=== PATIENT | male | born 1950 | race Caucasian/White ===

== ENCOUNTER 2016-05-02 01:26 | Inpatient (IN) | payer MEDICARE, OTHER ==
[~2016-05-02] VITALS: Ht 185.4 cm; Wt 119.8 kg
--- NOTE | ~2016-05-02 | HP ---
PATIENT'S NAME: JAYE LOVE [facility] AGE: 65 Y [address] ROOM: [id number] [place], [place] [address] LOCATION: GPCU ADMIT DATE: 05/02/2016 History & Physical DISCHARGE DATE: FAMILY PHYSICIAN: PHYSICIAN, UNKNOWN ATTENDING PHYSICIAN: JACOB DE LEON DATE OF SERVICE: CHIEF COMPLAINT: Epigastric and right upper quadrant abdominal pain since 2-3 days ago associated with nausea, nonbloody vomiting, dark color urine, and pale stool. HISTORY OF PRESENT ILLNESS: This is a 65-year-old male who says that for the last 2-3 days he has been having this chills and started having this abdominal pain in the epigastric and in the right upper quadrant area sometimes worse with a food intake and sometimes it is not. He says that this pain is also associated with nausea and nonbloody vomiting. He vomited a few episodes the last few days, but he did not see any blood. Also, there was no coffee-ground emesis either. Because of the abdominal pain that is getting worse, therefore, the patient went to [facility] in [place] for evaluation. Over there, the patient had a blood work performed and the patient was found to have normal CBC and the chemistry was remarkable for a CKD stage 3, creatinine 1.5, GFR 45, which is his baseline, and the elevation of liver enzymes, which is new onset, total bilirubin 6.0, AST 461, ALT 803, alkaline phosphatase 240, total protein 6.9, albumin 3.3, globulin 3.6, lipase 71; and because of this, the patient was transferred here for higher level of care. No imaging test was performed over there. I instructed over there to give the patient one dose of IV Levaquin and IV Flagyl given that the patient has allergy to penicillin. This is a coverage for possible cholangitis. The patient was later sent over here for higher level of care. The patient's vital signs are well-maintained within normal limits at all times. REVIEW OF SYSTEMS: As mentioned in the history of present illness. All other systems reviewed and negative except those mentioned in the history of present illness. PAST MEDICAL HISTORY: 1. Hypertension. 2. History of coronary artery disease, status post drug-eluting stent x3 many years ago. 3. Benign prostatic hypertrophy. 4. Obstructive sleep apnea, on home CPAP. He uses 13 cm water pressure every night. 5. History of multiple left kidney stones, status post multiple urological PATIENT'S NAME: JAYE LOVE [facility] AGE: 65 Y [address] ROOM: [id number] [place], [place] [address] [facility] AD[facility] DATE: 05/02/2016 History & Physical DISCHARGE DATE: FAMILY PHYSICIAN: PHYSICIAN, UNKNOWN ATTENDING PHYSICIAN: JACOB DE LEON procedure including stone removal and stent placement. 6. CKD stage 3. 7. Hypertension. 8. Hyperlipidemia. ALLERGIES: PENICILLIN, AMPICILLIN, AND AMOXICILLIN, WHICH GIVES HIM DIARRHEA, AND KIWI, WHICH CAUSES ANAPHYLAXIS. HOME MEDICATIONS: Currently, it is being reconciled. SOCIAL HISTORY: The patient was a former cigarette smoker and he quit in 1971. He used to smoke about 1 pack per day for 8 years. He denies any alcohol or any illegal drug use. FAMILY HISTORY: Father from myocardial infarction at age 53 and mother from complications from alcoholism. PAST SURGICAL HISTORY: 1. Status post cholecystectomy. 2. Status post left kidney stone removal in the past. 3. Status post left total knee arthroplasty. 4. Status post left inguinal hernia repair. 5. Status post umbilical hernia repair. 6. Status post skin cancer removal x3 including melanoma. 7. Status post drug-eluting stent x3 many years ago in 2001, according to the patient. PHYSICAL EXAMINATION: VITAL SIGNS: At the time of my dictation, temperature 98.4, heart rate 90, respirations 16, blood pressure 120/71, and saturation 94% on room air. Pain 3/10 to 4/10 in the right upper quadrant and also in the epigastric area. GENERAL APPEARANCE: Alert and oriented x3, in no acute distress, a very pleasant male. HEENT: Pupils equally round and reactive to light. Extraocular muscles intact. Anicteric sclerae present bilaterally. Nasal turbinates are normal bilaterally. Moist oral mucosa. No oral thrush. NECK: No JVD. No cervical lymphadenopathy. No neck stiffness. CARDIOVASCULAR: Regular rate and rhythm. Normal S1, S2. No murmur, no rubs, no gallops. RESPIRATORY: Clear. ABDOMEN: Soft, no abdominal rigidity, tenderness to palpation in the PATIENT'S NAME: JAYE LOVE [facility] AGE: 65 Y [address] ROOM: [id number] [place], [place] [address] LOCATION: GPCU ADMIT DATE: 05/02/2016 History & Physical DISCHARGE DATE: FAMILY PHYSICIAN: PHYSICIAN, UNKNOWN ATTENDING PHYSICIAN: JACOB DE LEON epigastric and in the right upper quadrant about 4/10 intensity, no rebound tenderness, bowel sounds are present, no hepatosplenomegaly. EXTREMITIES: No edema in upper or lower extremities. NEUROLOGIC: Grossly nonfocal. SKIN: No ulcer, no rash, no cyanosis. MUSCULOSKELETAL: No joint pain. No muscle pain. NEUROLOGICAL: Grossly nonfocal. LABORATORY DATA: Lactic acid 1.6. White blood cell 10.2, hemoglobin 12.9, hematocrit 38.9, MCV 93.7, and platelet 220. Glucose 136, BUN 24, creatinine 1.6, sodium 143, potassium 4.1, chloride 110, CO2 23, calcium is 8.8, total protein 6.5, albumin 3.2, AST 399, ALT 720, alkaline phosphatase 250, total bilirubin 5.7, direct bilirubin 4.6, phosphorus 2.1, GFR 43, magnesium 1.7, and anion gap 14.1. INR 1.1. Urinalysis 25 leukocytes, 20-50 white blood cells, few bacteria, positive nitrite. Procalcitonin 18.59. IMAGING STUDIES: No EKG was performed from the outside facility. ASSESSMENT AND PLAN: 1. Abnormal liver function testing in the setting of right upper quadrant pain and jaundice, status post cholecystectomy: Concern for choledocholithiasis or ascending cholangitis. We will cover him with intravenous Zosyn. His allergy reaction to penicillin was only diarrhea. I will cover him with intravenous Zosyn. GI consult in the morning. First of all, I will get a complete abdominal ultrasound to look into the anatomy of the biliary tract. If necessary and if suspect pancreatic obstruction, then a CT scan of the abdomen and pelvis can be performed to better visualize the pancreas. But for now, I will start with ultrasound of the abdomen. N.p.o. Intravenous fluids for hydration while n.p.o. Further plan depends on clinical course. I will also get blood culture 2 sets and also urinalysis and urine culture as well. 2. Regarding his chronic kidney disease, stage 3: Currently, he is at the baseline. Continue intravenous fluids while he is n.p.o. 3. History of obstructive sleep apnea: The patient's will bring the CPAP from home and his setting is pressure set at 13 every night. 4. History of coronary artery disease, status post drug-eluting stent x3 in the past: Currently, no chest pain. Continue home medication. Not in acute coronary syndrome. If chest pain occurs, we will workup for chest pain etiology. 5. Hypertension: Currently, the medication is being reconciled. We will address once the list is ready. 6. Deep vein thrombosis prophylaxis: He will be on compression devices in anticipation for any gastrointestinal procedure. PATIENT'S NAME: JAYE LOVE [facility] AGE: 65 Y [address] ROOM: [place] [address] [facility] ADMIT DATE: 05/02/2016 History & Physical DISCHARGE DATE: FAMILY PHYSICIAN: PHYSICIAN, UNKNOWN ATTENDING PHYSICIAN: JACOB DE LEON Time spent on the day of admission 40 minutes including chart review, interviewing the patient, examining the patient, addressing all the questions and concerns the patient had, and going over the plan of care with the patient and the nurses. JACOB DE LEON MD CC/leeannal /[id number] D: T: HISTORY & PHYSICAL
--- NOTE | ~2016-05-02 | DS ---
PATIENT'S NAME: JAYE LOVE [facility] AGE: 65 Y [address] ROOM: [place] [address] LOCATION: [facility] ADMIT DATE: 05/02/2016 Discharge Summary DISCHARGE DATE: 05/05/2016 FAMILY PHYSICIAN: Angela Nunez MD ATTENDING PHYSICIAN: Ever Kern PRIMARY DIAGNOSES: 1. Acute upper gastrointestinal bleeding. 2. Acute blood loss anemia. 3. Severe sepsis for acute cholangitis. 4. Choledocholithiasis status post ERCP. 5. Essential hypertension. 6. Obstructive sleep apnea, uses CPAP. 7. Coronary artery disease status post PCI with stent. 8. Nephrolithiasis. 9. Chronic kidney disease, stage III. 10. Dyslipidemia. OPERATIONS/PROCEDURES: 1. Abdominal ultrasound was performed 05/02/2016 demonstrating dilatation of the common bile duct up to 1.4 cm, a left renal stone 4-5 mm without hydronephrosis and a surgically absent gallbladder. 2. MRI scan of the abdomen was performed on 05/04/2016 demonstrating mild dilatation of common bile duct with a filling defect consistent with a common bile duct stone in the distal common bile duct. 3. Interventional Radiology angiography and attempted embolization was performed 05/05/2016 unsuccessfully. HISTORY OF ILLNESS/REASON FOR ADMISSION: Please refer to the H and P dictated 04/22/2016. HOSPITAL COURSE: The patient was admitted to hospital as noted above with a presumptive diagnosis of sepsis and acute cholangitis. He was treated with broad-spectrum antibiotic therapy including Zosyn, Flagyl, and levofloxacin. He was hemodynamically stable initially. Ultrasound and MRI scanning were carried out as described above. Gastroenterology had been consulted. It was recommended to proceed with an endoscopy and ERCP. Because of the patient's complicated history, it was felt that the procedure would be high risk. This was because of a known history of a gastric outlet obstruction and previous history of multiple attempts at ERCP with an inability to cannulate the ampulla. On 05/05/2016, the patient was taken for ERCP. The final report of the procedure is pending. Apparently, it was difficult to pass the endoscope PATIENT'S NAME: JAYE LOVE [facility] AGE: 65 Y [address] ROOM: [place] [address] LOCATION: GICU ADMIT DATE: 05/02/2016 Discharge Summary DISCHARGE DATE: 05/05/2016 FAMILY PHYSICIAN: Angela Nunez MD ATTENDING PHYSICIAN: Ever Kern through the gastric outlet obstruction. 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 A sphincterotomy and stent placement were performed, but a significant amount of bleeding ensued. He continued to show evidence of brisk bleeding. He did remain hemodynamically stable at least initially. The patient is Restoration and refused any blood product transfusion. He did receive some IV fluid supplementation. After transfer back to the intensive care unit where he remained intubated (he was intubated prior to the procedure and was kept intubated), his blood pressures dropped. He did receive some additional IV fluid boluses and Levophed was initiated. His blood pressures improved. He did receive some Versed for sedation, but remained arousable and interactive. Dr. Gonzalez, Gastroenterology did discuss the case with Gastroenterology at [facility] in [place], Dr. Guzman. We did make an attempt at Interventional Radiology arteriography and embolization here. However, this was unable to be performed successfully because of vasospasm. It was recommended that the patient be transferred emergently for pancreatic surgical evaluation. The case was discussed with Dr. Guzman as described above by Dr. Gonzalez at our facility. It was requested the patient be transferred emergently there for Gastroenterology evaluation as well as a surgical evaluation and intervention. I did call and discuss the case with Dr. Garcia, hospitalist who agreed to accept the patient in transfer there to the intensive care unit. The patient was hemodynamically stable on Levophed. We did review his status as Restoration and refusal for any transfusion of blood products. The gravity of the case and urgency of transfer and surgical evaluation were also discussed with the patient and his family, who expressed understanding and agreement to the transfer. DISCHARGE/TRANSFER INSTRUCTIONS: DIET: He will remain n.p.o. and on the ventilator. ACTIVITY: Bed rest. MEDICATIONS: 1. Zosyn 3.375 g IV q.8 hours. 2. Normal saline to run at 75 mL continuously. 3. Levophed titrate to keep map greater than 65. 4. Flonase 2 puffs each nostril daily. 5. Melatonin 3 mg p.o. at bedtime. 6. Protonix 20 mg p.o. daily. 7. Pramipexole 0.125 mg p.o. at bedtime. 8. Sertraline 50 mg p.o. q.a.m. PATIENT'S NAME: JAYE LOVE [facility] AGE: 65 Y [address] ROOM: [place] [address] LOCATION: [facility] ADMIT DATE: 05/02/2016 Discharge Summary DISCHARGE DATE: 05/05/2016 FAMILY PHYSICIAN: Angela Nunez MD ATTENDING PHYSICIAN: Ever Kern 9. Flomax 0.4 mg p.o. q.a.m. 10. Acetaminophen 325 mg p.o. q.4 hours p.r.n. pain or fever. 11. Alprazolam 0.125-0.25 p.o. daily p.r.n. anxiety. 12. Flexeril 10 mg p.o. daily p.r.n. 13. Fentanyl 25-50 mcg IV q.3 hours p.r.n. pain. 14. Lidocaine 1% applied topically for IV starts. 15. Lorazepam 0.5-1 mg IV q.3 hours p.r.n. anxiety. 16. Reglan 10 mg IV 1 hour prior to endoscopy p.r.n. 17. Versed 1-5 mg IV daily 30 minutes p.r.n. 18. Nitroglycerin p.r.n. 19. Zofran 4 mg IV q.4 hours p.r.n. 20. MiraLAX 17 g p.o. daily p.r.n. FOLLOWUP: He will have followup at [facility] intensive care unit by Dr. Garcia, hospitalist and Dr. Guzman, Gastroenterology, and ultimately surgical evaluation there. CONDITION ON DISCHARGE: Fair. The patient's condition was stabilized to the best ability of this facility within all available capabilities. The reason for transfer is higher level of care. Total time spent on discharge/transfer process is 60 minutes. JORGE J SMOLIK, MD AJS/megan /[id number] d: 05/06/16 0250 t: 05/07/16 1532, DISCHARGE SUMMARY
--- NOTE | ~2016-05-02 | CON ---
PATIENT'S NAME: JAYE LOVE [facility] AGE: 65 Y [address] ROOM: [place] [address] LOCATION: GPCU ADMIT DATE: 05/02/2016 Consultation DISCHARGE DATE: FAMILY PHYSICIAN: PHYSICIAN, UNKNOWN ATTENDING PHYSICIAN: JACOB DE LEON DATE OF CONSULTATION: 05/02/2016 REASON FOR CONSULT: Cholangitis. HISTORY OF PRESENT ILLNESS: Mr. Love is a 65-year-old male who was transferred from another hospital in view of history of nausea, vomiting, fever, and chills in association with elevated liver function tests with total bilirubin up to 5.7. The patient was placed on antibiotics and is presently afebrile. He denies any abdominal pain or nausea at present. His vital signs are stable. The patient is post cholecystectomy back in 2002 followed by ERCP for removal of a "ductal stone." Apparently, had pancreatitis at that time; this was back in [place]. Then, he had another episode of "mild pancreatitis and/or gastroenteritis" as per history available and was doing well until lately over the last 2 days, and especially yesterday when he started to have fever, chills, and rigors, presented to his local hospital, and then was transferred over. Ultrasound was ordered, but is presently pending. PAST MEDICAL HISTORY: 1. Hypertension. 2. Coronary artery disease and coronary stent. 3. Obstructive sleep apnea. 4. Hypertension. 5. Hyperlipidemia. PAST SURGICAL HISTORY: 1. Cholecystectomy. 2. Recent knee surgery. MEDICATIONS: As noted in MAR. ALLERGIES: NOTED. SOCIAL HISTORY: Previous history of smoking and alcohol use. PATIENT'S NAME: JAYE LOVE [facility] AGE: 65 Y [address] ROOM: [address] [place], [place] [address] LOCATION: GPCU ADMIT DATE: 05/02/2016 Consultation DISCHARGE DATE: FAMILY PHYSICIAN: PHYSICIAN, UNKNOWN ATTENDING PHYSICIAN: JACOB DE LEON FAMILY HISTORY: Coronary artery disease. REVIEW OF SYSTEMS: GENERAL: Feels well. Denies any ongoing problems with loss of weight or loss of appetite. Did complain of discolored urine recently. CARDIOVASCULAR: History of coronary artery disease and previous stents. Denies ongoing chest pain or shortness of breath. RESPIRATORY: Denies any complaints. GASTROINTESTINAL: As noted in HPI. The 10-point review of systems was otherwise negative except as noted above. PHYSICAL EXAMINATION: GENERAL: An elderly man, in no acute distress. He is awake, alert, and appropriate. VITAL SIGNS: Stable. Temperature 98.4, heart rate 84 per minute, and blood pressure 130/70. HEENT: Mildly icteric bilateral sclerae. CHEST: Clear to auscultation. HEART: S1 and S2 normal. ABDOMEN: Soft and benign with mild epigastric and right upper quadrant tenderness. Well-healed scar in the right upper quadrant. EXTREMITIES: No edema. NEUROLOGIC: Awake, alert, and appropriate, without any focal deficits. LABORATORY DATA: Labs are reviewed and are noncontributory with white cell count of 10.2 and hemoglobin 12.9. INR 1.1. Bilirubin of around 5.7 with elevated transaminases. Abdominal ultrasound done, but pending. ASSESSMENT AND PLAN: History and findings are highly suggestive of underlying cholangitis with suspected common bile duct obstruction in the setting of postcholecystectomy state and attempted ERCP and/or sphincterotomy back in 2002. At this point, there is no evidence of ongoing cholangitis, and his vital signs are stable. Therefore, we will continue antibiotics with plans for ERCP and removal of the stones and/or obstruction in the morning. I have explained to him the procedure of ERCP including the possible risks and complications thereof, and he is agreeable. All his questions are answered. Thank you for this consult. PATIENT'S NAME: JAYE LOVE [facility] AGE: 65 Y [address] ROOM: [place] [address] LOCATION: GPCU ADMIT DATE: 05/02/2016 Consultation DISCHARGE DATE: FAMILY PHYSICIAN: PHYSICIAN, UNKNOWN ATTENDING PHYSICIAN: JACOB DE LEON KENNEDI LIN MD AM/megan /[id number] d: 05/02/16 1233 t: 05/04/16 0801, CONSULTATION REPORT
[~2016-05-02 01:26] MED LIST: ALDACTONE25 MG PO; ASPIRIN EC81 MG PO; CALCIUM-MAGNES1 EAC2 PO; CENTRUM COMPLE1 EACH PO; CPAP INH; FEOSOL325 MG PO; FLEXERIL10 MG PO; FLOMAX0.4 MG PO; FLONASE 50 MCG/16 GM NOSE; ILEVRO1.7 ML OPHTH; LEXAPRO20 MG PO; MELATONIN10 M2 PO; MIRALAX17 GM PO; MIRAPEX0.125 MG PO; NIASPAN500 MG PO; NITROSTAT 0.40.4 MG SL; PRAVACHOL80 MG PO; PRILOSEC20 MG PO; TOPROL XL 5050 MG PO; TRICOR145 MG PO; ULTRAM50 MG PO; VITAMIN B-121000 MCG PO; XANAX0.25 MG PO; ZOLOFT50 M1 PO
--- NOTE | 2016-05-02 04:37 | NUR ---
PATIENT ARRIVED TO PCU AROUND 0220 VIA AMBULANCE FROM [facility]. THE AMBULANCE WAS CALLED TO THE PATIENT HOME TONIGHT AROUND 23OO AFTER HAVING INCREASED WEAKNESS, CHILLS/SWEATS, WELCH STOOLS, AND N/V. TESTS IN [facility] SHOWED PATIENT HAD ASCENDING CHOLANGITIS AND WAS TRANSFERED HERE FOR HIGHER LEVEL OF CARE. A/0X3. TEMP 98.4. HR 104. RR-16. SBP 120'S. 94% ON RA. PATIENT C/O OF A 4/10 GENERALIZED HEADACHE. DOCTOR CALLED AND UP TO SEE PATIENT. PATIENT IS RESTING COMFORTABLY IN BED.
--- NOTE | 2016-05-02 06:50 | NUR ---
Significant Event: a/0x3. SELDOVIA. RESTED IN BED. TURNS SELF. AFEBRILE. VSS ON RA. FENTANYL GIVEN X1 FOR HEADACHE. LAST DOSE WAS AT 0634.PATIENT IS RESTING COMFORTABLY. IV TO R) WRIST HAS NS @ 75 ML/H AND STARTED IV ZOYSN. NO C/O OF N/V UPON ARRIVAL TO PCU. STILL HAVING SOME TENDERNESS IN THE ABD WHEN PALPATING ON IT. GI WAS CONSULTED THIS AM FOR ASCENDING CHOLANGITIS. ALSO ABDOMINAL ULTRASOUND ORDERED. NO BM THIS SHIFT. VOID X1. STILL NEED A UA. Follow up: CONTINUE WITH PLAN OF CARE.
[2016-05-02 07:08] LABS: BASOPHIL % 0.4 %; EOSINOPHIL % 0.3 %; HEMATOCRIT 38.9 % (37.0-53.0); HEMOGLOBIN 12.9 g/dL (11.0-16.0); IMMATURE GRANULOCYTE % 0.4 %; LYMPHOCYTE # 0.6 K/uL (0.8-4.0); LYMPHOCYTE % 6.2 %; MCH 31.1 pg (27.0-34.0); MCHC 33.2 gm/dL (32.0-36.5); MCV 93.7 fl (83.0-98.0); MONOCYTE # 0.5 K/uL (0.0-1.0); MONOCYTE % 5.3 %; MPV 9.8 fl (9.4-12.4); NEUTROPHIL % 87.4 %; NRBC % 0 /100WBC (0-0.00); PLATELET COUNT 220 K/uL (150-450); RBC 4.15 M/uL (3.50-5.50); RDW-CV 14.3 % (11.9-14.6); WBC 10.2 K/uL (4.0-11.0)
[2016-05-02 07:14] LABS: INR - (THERAPEUTIC) 1.1 (0.9-1.1); PROTIME 11.9 SECONDS (9.6-11.1)
[2016-05-02 07:23] LABS: ANION GAP 14.1 (10.0-19.0); CALCIUM 8.8 mg/dL (8.5-10.5); CREATININE 1.6 mg/dL (0.6-1.3); MAGNESIUM 1.7 mg/dL (1.3-2.6); POTASSIUM 4.1 mMol/L (3.7-5.1)
[2016-05-02 07:24] LABS: ALBUMIN 3.2 gm/dL (3.5-5.0); PHOSPHORUS 2.1 mg/dL (2.5-4.9); TOTAL BILIRUBIN 5.7 mg/dL (0.0-1.5); TOTAL PROTEIN 6.5 g/dL (6.0-8.4)
[2016-05-02 08:41] LABS: BLOOD URINE 10 /UL (NEGATIVE); COLOR URINE AMBER (YELLOW); GLUCOSE URINE NEGATIVE (NEGATIVE); KETONE URINE NEGATIVE (NEGATIVE); LEUKOCYTES URINE 25 /UL (NEGATIVE); NITRITE URINE POSITIVE (NEGATIVE); PH URINE 6.5 (4.0-8.0); PROTEIN URINE 15 mg/dL (NEGATIVE); SPEC GRAVITY URINE 1.015 (1.003-1.035); TURBIDITY URINE CLEAR (CLEAR); UROBILINOGEN URINE 12 mg/dL (NORMAL)
[2016-05-02 08:47] LABS: BACTERIA URINE FEW (NEGATIVE); CRYSTALS URINE CALCIUM OXALATE (NEGATIVE); WBC URINE 20-50 #/HPF (NEGATIVE)
--- NOTE | 2016-05-02 10:15 | NUR ---
PT SCREENED D/T (+) MST. WT LOSS D/T LOW FAT DIET. APPETITE GOOD PRIOR TO ADMIT, BMI REMAINS IN OBESE RANGE. BASED ON CURRENT DATA, NO NUTRITION DIAGNOSIS IDENTIFIED. WILL MONITOR ROUTINELY.
[2016-05-02] MEDS ORDERED: COLACE100 MG PO (10:54)
[2016-05-02] MEDS ORDERED: PERCOCET 5-3251 EACH PO (10:54)
--- NOTE | 2016-05-02 16:33 | NUR ---
Significant Event: A/OX3, VSS ON ROOM AIR. 50mcg OF IV FENTANYL GIVEN X3 TODAY FOR COMPLAINTS OF A HEADACHE, LAST DOSE GIVEN AT 1358. PT. IS ON CLEAR LIQUIDS TODAY, WILL BE NPO AFTER MIDNIGHT FOR ERCP IN AM, PERMITS SIGNED, ENDO WILL COME GET AT 0700. PT. USES THE URINAL, ONLY HAD 600mL OF UOP THIS SHIFT, URINE CASIE COLOR. IV TO L)WRIST HAD NS @ 70mL/HR & IV ZOSYN. PT. GETS UP SBA TO BATHROOM. PT. IS HARD OF HEARING. WEARS CPAP AT NIGHT. BM X1, MORE FORMED TODAY THAN IT HAS BEEN. Follow up: CONTINUE WITH POC.
[2016-05-03 03:34] LABS: BASOPHIL % 0.9 %; EOSINOPHIL # 0.2 K/uL (0.0-0.5); EOSINOPHIL % 4.8 %; HEMATOCRIT 33.9 % (37.0-53.0); HEMOGLOBIN 11.3 g/dL (11.0-16.0); IMMATURE GRANULOCYTE % 0.4 %; LYMPHOCYTE # 0.9 K/uL (0.8-4.0); LYMPHOCYTE % 19.9 %; MCHC 33.3 gm/dL (32.0-36.5); MCV 93.1 fl (83.0-98.0); MONOCYTE # 0.4 K/uL (0.0-1.0); MONOCYTE % 7.8 %; MPV 9.9 fl (9.4-12.4); NEUTROPHIL # (ANC) 3.1 K/uL (1.4-9.0); NEUTROPHIL % 66.2 %; NRBC % 0 /100WBC (0-0.00); PLATELET COUNT 186 K/uL (150-450); RBC 3.64 M/uL (3.50-5.50); RDW-CV 14.3 % (11.9-14.6); WBC 4.6 K/uL (4.0-11.0)
[2016-05-03 03:51] LABS: ALBUMIN 2.7 gm/dL (3.5-5.0); ANION GAP 13.6 (10.0-19.0); CALCIUM 8.5 mg/dL (8.5-10.5); CREATININE 1.3 mg/dL (0.6-1.3); POTASSIUM 3.6 mMol/L (3.7-5.1); TOTAL PROTEIN 5.9 g/dL (6.0-8.4)
[2016-05-03 03:52] LABS: TOTAL BILIRUBIN 3.2 mg/dL (0.0-1.5)
--- NOTE | 2016-05-03 04:58 | NUR ---
Significant Event: Patient alert and oriented. UP with standby assist. VSS. Patient wears own CPAP at night. Pain managed with tylenol, fentanyl, and flexeril. Ice to left knee for additional pain management. NPO since midnight for ERCP this am. Rested well throughout shift. Urine continues to be donato colored. Pleasant and cooperative with cares. Follow up: continue plan of care, ERCP today.
--- NOTE | 2016-05-04 03:28 | NUR ---
Patient A/Ox3. VSS on RA. Lungs clear. Bowel sounds present. New IV to Rt forearm. Up standby assist. NS at 100ml/hr. Zosyn Q8hrs. Tylenol x1 and ice for knee pain. NPO for MRCP this am.
[2016-05-04 06:04] LABS: BASOPHIL # 0.1 K/uL (0.0-0.2); BASOPHIL % 1.3 %; EOSINOPHIL # 0.2 K/uL (0.0-0.5); EOSINOPHIL % 6.3 %; HEMATOCRIT 32.9 % (37.0-53.0); HEMOGLOBIN 10.9 g/dL (11.0-16.0); IMMATURE GRANULOCYTE % 0.8 %; LYMPHOCYTE # 1.2 K/uL (0.8-4.0); LYMPHOCYTE % 30.4 %; MCHC 33.1 gm/dL (32.0-36.5); MCV 93.5 fl (83.0-98.0); MONOCYTE # 0.3 K/uL (0.0-1.0); MONOCYTE % 6.8 %; NEUTROPHIL # (ANC) 2.1 K/uL (1.4-9.0); NEUTROPHIL % 54.4 %; NRBC % 0 /100WBC (0-0.00); PLATELET COUNT 192 K/uL (150-450); RBC 3.52 M/uL (3.50-5.50); RDW-CV 14.3 % (11.9-14.6); WBC 3.8 K/uL (4.0-11.0)
[2016-05-04 06:17] LABS: ALBUMIN 2.5 gm/dL (3.5-5.0); ANION GAP 11.6 (10.0-19.0); CALCIUM 8.5 mg/dL (8.5-10.5); CREATININE 1.3 mg/dL (0.6-1.3); POTASSIUM 3.6 mMol/L (3.7-5.1); TOTAL PROTEIN 5.6 g/dL (6.0-8.4)
[2016-05-04 06:19] LABS: TOTAL BILIRUBIN 1.5 mg/dL (0.0-1.5)
--- NOTE | 2016-05-04 14:25 | NUR ---
Introduced self and care management services to patient. Lives in [place] with . Denies concerns about going home on discharge, denies needs. Liner [facility]er will follow and assist with dc planning as needs identified.
--- NOTE | 2016-05-04 16:50 | NUR ---
Significant Event: DOWN FOR MRCP EARLY THIS AM, PANIC ATTACK, BACK TO ROOM WITHOUT COMPLETEING TEST. ATIVAN ORDER FROM DR FLORES. TRIED 0.5 MG IV OF ATIVAN PRIOR TO NOON MRCP, PT DID MUCH BETTER, TEST COMPLETED. PT HAS BEEN IN ROOM RESTING ALL AFTERNOON. PLEASENT AND COOPERATIVE WITH CARES. Follow up: MONITOR
--- NOTE | 2016-05-05 00:21 | NUR ---
Significant Event: PT HAS RESTED WELL. SLEPT HARD, BUT THEN WOKE UP AT 2130, DENIES ANY C/O PAIN THAT HE REQUESTED PAIN MEDICATIONS FOR. IV NS CONT AT 100 ML/HR TO PIV. CONSENTS SIGNED FOR PROCEDURE IN AM. PT HAS REQUESTED NO BLOOD PRODUCTS IF NEEDED Follow up: NPO AFTER MIDNIGHT.
--- NOTE | 2016-05-05 02:43 | NUR ---
Significant Event: A&Ox3. VSS. RA lungs clear. Pt wears CPAP at HS per home settings. Bowel sounds active. IV to R) forearm running NS at 100ml/hr. Zosyn Q8hrs. Tylenol given x1 due to leg pain and slight headache. Follow up: EGD this am around 1000 with ERCP. To give dose of Reglan 1 hour prior to scope. NPO since 0000. Pre-Op checklist on chart consents signed.
[2016-05-05 04:24] LABS: BASOPHIL # 0.1 K/uL (0.0-0.2); BASOPHIL % 1.3 %; EOSINOPHIL # 0.2 K/uL (0.0-0.5); EOSINOPHIL % 5.1 %; HEMATOCRIT 33.4 % (37.0-53.0); HEMOGLOBIN 11.2 g/dL (11.0-16.0); IMMATURE GRANULOCYTE % 0.8 %; LYMPHOCYTE # 1.5 K/uL (0.8-4.0); LYMPHOCYTE % 31.5 %; MCH 31.4 pg (27.0-34.0); MCHC 33.5 gm/dL (32.0-36.5); MCV 93.6 fl (83.0-98.0); MONOCYTE # 0.3 K/uL (0.0-1.0); MONOCYTE % 7.2 %; MPV 9.9 fl (9.4-12.4); NEUTROPHIL # (ANC) 2.6 K/uL (1.4-9.0); NEUTROPHIL % 54.1 %; NRBC % 0 /100WBC (0-0.00); PLATELET COUNT 227 K/uL (150-450); RBC 3.57 M/uL (3.50-5.50); RDW-CV 14.4 % (11.9-14.6); WBC 4.7 K/uL (4.0-11.0)
[2016-05-05 04:46] LABS: ALBUMIN 2.6 gm/dL (3.5-5.0); CALCIUM 8.4 mg/dL (8.5-10.5); CREATININE 1.2 mg/dL (0.6-1.3); POTASSIUM 3.8 mMol/L (3.7-5.1); TOTAL PROTEIN 5.9 g/dL (6.0-8.4)
[2016-05-05 04:53] LABS: ANION GAP 13.8 (10.0-19.0)
--- NOTE | 2016-05-05 12:54 | NUR ---
Significant Event:A/O x 3. Ambulates with SBA, still some slight unsteadiness with left knee. UP in recliner and back and forth to the bathroom today. NSR with AV block. Took off own CPAP this AM and O2 sats > 90% on RA. NPO this AM for EGD/ERCP. Left at 0953. 1100 IV ABX sent to Endo, they report they will gi give it. Voiding in urinal by self. NO BM since 04/30/16. Took tylenol last night for GIBBS. Refused shower because he took a shower yesterday. Brushed teeth and cleaned self up in the bathroom. IVF infusing at 100 ml/h. IV Reglan given at approximately 0900. Follow up:Home tomorrow?
[2016-05-05 13:32] LABS: BASOPHIL # 0.1 K/uL (0.0-0.2); EOSINOPHIL # 0.2 K/uL (0.0-0.5); HEMATOCRIT 32.6 % (37.0-53.0); HEMOGLOBIN 10.8 g/dL (11.0-16.0); IMMATURE GRANULOCYTE # 0.1 K/uL (0.0-0.3); IMMATURE GRANULOCYTE % 1.4 %; LYMPHOCYTE % 28.3 %; MCH 31.5 pg (27.0-34.0); MCHC 33.1 gm/dL (32.0-36.5); MONOCYTE # 0.4 K/uL (0.0-1.0); MONOCYTE % 5.3 %; MPV 9.8 fl (9.4-12.4); NEUTROPHIL # (ANC) 4.3 K/uL (1.4-9.0); NRBC % 0 /100WBC (0-0.00); RBC 3.43 M/uL (3.50-5.50); RDW-CV 14.4 % (11.9-14.6)
[2016-05-05 13:35] LABS: PLATELET COUNT 290 K/uL (150-450)
[2016-05-05 14:20] LABS: PCO2 37 mmHg (35-45); PO2 133 mmHg (80-90)
--- NOTE | 2016-05-05 17:37 | NUR ---
Patient was admitted to ICU from Endoscopy at 1304. He arrived on the ventilator sedated and comfortable. Blood pressure were initially hypertensive. Shortly after arrival blood pressure decreased. A normal saline bolus was given and Levophed was started. Blood was leaking from the patient's mouth so an OG was placed to LIS. Right after placement 400ml of blood gastric content were suctioned out. The patient was taken to radiology to have an arteriogram done. They were not able to fix the bleeding so a transfer was lined up. The patient recieved a total of 15mg of Versed IVP to keep him comfortable on the ventilatar and during the procedure. He was transferred to [facility] per our flight team. We placed a cornejo just prior to him leaving. A right groin arterial line and right IJ central line was placed while he was down in radiology.
--- NOTE | 2016-05-05 17:49 | NUR ---
Flight left ICU with the patient at 1700. Prior to sedation for the flight patient was nodding and following commands. He was communicating with his family by writing. Bloody gastric secretions slowed significatly before transfer.
== END 2016-05-05 17:15 | disposition critical access hospital (66) | DRG 871 ==
LOC: GICU 02:35 → GPCU 02:35 → GICU 05-05 13:07
PROVIDERS: Family Medicine; Internal Medicine Gastroenterology; ADMIT Internal Medicine
DX: A41.9 Sepsis, unspecified organism (principal); T81.19XA Other postprocedural shock, initial encounter; N17.9 Acute kidney failure, unspecified; K31.1 Adult hypertrophic pyloric stenosis; Z99.81 Dependence on supplemental oxygen; D62 Acute posthemorrhagic anemia; K80.33 Calculus of bile duct with acute cholangitis with obstruction; N18.3 Chronic kidney disease, stage 3 (moderate); E78.5 Hyperlipidemia, unspecified; G47.33 Obstructive sleep apnea (adult) (pediatric); R65.20 Severe sepsis without septic shock; I12.9 Hypertensive chronic kidney disease with stage 1 through stage 4 chronic kidney disease, or unspecified chronic kidney disease; I25.10 Atherosclerotic heart disease of native coronary artery without angina pectoris; I73.9 Peripheral vascular disease, unspecified; N20.0 Calculus of kidney
CPT/HCPCS: C1726; C1769; C1887; C1894; J1644; J1650; J2001; J2060; J2250; J2543; J2704; J2765; J3010; J7030; J7040; J7050; J7060

== ENCOUNTER → 2016-05-05 | Outpatient (CLI) | payer MEDICARE, OTHER ==
[~2016-05-05] MED LIST changes: +COLACE100 MG PO; +PERCOCET 5-3251 EACH PO
== END | disposition disaster alternative care site (69) ==
LOC: GAIR 17:25
DX: R57.1 Hypovolemic shock (principal); I10 Essential (primary) hypertension; E78.5 Hyperlipidemia, unspecified; Z90.49 Acquired absence of other specified parts of digestive tract; Z79.891 Long term (current) use of opiate analgesic; Z79.82 Long term (current) use of aspirin; Z79.899 Other long term (current) drug therapy; Z88.1 Allergy status to other antibiotic agents; Z88.0 Allergy status to penicillin
CPT/HCPCS: A0422; A0431; A0436; J3010; J7030